=== PATIENT | male | born 1995 | race Caucasian/White ===

== ENCOUNTER 2017-08-16 20:47 | Emergency (ER) | payer SELFPAY ==
[2017-08-16 22:25] LABS: BASOPHILS 0.3 % (0-2); EOSINOPHILS 1.1 % (0-7); HEMOGLOBIN 15.9 g/dL (13.5-17.5); IMMATURE GRANULOCYTES 0.1 % (0-5); LYMPHOCYTES 18.8 % (15-50); MCH 28.1 pg (26.0-34.0); MCHC 33.8 g/dL (31.0-37.0); MEAN PLATELET VOLUME 10.3 fL (7.4-10.4); MONOCYTES 9.1 % (2-11); NEUTROPHILS 70.6 % (40-80); PLATELET COUNT 216 10x3/uL (130-400); RBC 5.66 10x6/uL (4.20-6.10); RDW 13.2 % (11.5-14.5)
== END 2017-08-16 23:02 | disposition home or self-care (01) ==
LOC: D.ER 20:47
PROVIDERS: Family Medicine
DX: S70.01XA Contusion of right hip, initial encounter (principal); V23.4XXA Motorcycle driver injured in collision with car, pick-up truck or van in traffic accident, initial encounter; Y93.89 Activity, other specified; Y92.410 Unspecified street and highway as the place of occurrence of the external cause; S80.01XA Contusion of right knee, initial encounter; S61.211A Laceration without foreign body of left index finger without damage to nail, initial encounter; S02.5XXA Fracture of tooth (traumatic), initial encounter for closed fracture